=== PATIENT | female | born 1970 | race Two or more races ===

== ENCOUNTER → 2018-02-24 | Outpatient (CLI) | payer OTHER | END | disposition home or self-care (01) | LOC: RADPV 14:35 | PROVIDERS: ATTEND Internal Medicine Cardiovascular Disease | DX: I70.0 Atherosclerosis of aorta (principal); I20.9 Angina pectoris, unspecified; I11.9 Hypertensive heart disease without heart failure | CPT/HCPCS: 71046 ==